=== PATIENT | female | born 1965 | race Caucasian/White ===

== ENCOUNTER 2025-03-13 09:29 | Outpatient (AMB) | payer MEDICARE, SELFPAY ==
[2025-03-13 09:42] VITALS: BMI 24.5
--- NOTE | 2025-03-13 09:42 | A.PHYSOV ---
Vital Signs 03/13/25 09:42 Height 5 ft 6 in Weight 152 lb BMI 24.5 Intake Visit Reasons: Left shoulder injection Intake Note: Patient is a 60year old female here for a left shoulder injection today. Ingredient Specialist Required: No Allergies No Known Allergies Allergy (Verified 03/13/25 09:43) [facility] Social History Alcohol intake: current Alcohol intake frequency: does not drink Patient Tobacco Use Status: Never used Tobacco Substance Use Type: Marijuana Physical Exam Vital Signs: BMI result Body Mass Index 24.5 Office Procedures AMB Shoulder Injection AMB Shoulder Injection Procedure Details: Left Subacromial injection Procedure: The patient was educated about risks, complications and benefits including but not limited to increased serum glucose, infection, nerve damage, bleeding, tendon/ligament damage and pain. We agree with a subacromial injection is the next best step in the treatment plan. Verbal consent was obtained. Using aseptic technique, the skin was cleansed with Betadine. Ethyl chloride was used to desensitize the skin. Using a posterior approach, 40 mg of Kenalog and 3 mL 2% lidocaine were injected using a 25-gauge inch and a half needle into the subacromial space. The patient tolerated the procedure well without immediate complication. Postinjection instructions were given. Shoulder Injection - : Left All charges added?: Procedure code (CPT) selection complete Office Meds Kenalog 40 mg/mL suspension for injection Performing Provider: KENNY Lyn Performing Location: [facility] Administered by: KENNY Lyn on 03/13/25 10:01 Dose Route Admin Location Dispensed Lot Number Expiration Date [facility] Spot Sprayer 40 mg intra-articular 40 mL [id number] Total Dispensed Waste 40 mL 0 % lidocaine (PF) 20 mg/mL (2 %) injection solution Performing Provider: KENNY Lyn Performing Location: [facility] Administered by: KENNY Lyn on 03/13/25 10:01 Dose Route Admin Location Dispensed Lot Number Expiration Date [facility] Spot Sprayer 60 mg intra-articular 50 mL [id number] Total Dispensed Waste 50 mL 0 % Assessment & Plan Assessment & Plan (1) Impingement of left shoulder: Code(s): M25.812 - Other specified joint disorders, left shoulder Category: Medical Plan Ms. Zuniga is a 60-year-old female seen in evaluation today for left shoulder impingement. Today she consented to left subacromial injection. She was given post-injection instructions, I recommend: Moist heat compresses for 15 minutes 5 times daily. Continue rotator cuff strengthening. She should avoid repetitive overhead activities. Patient is experiencing paresthesias to left upper extremity for the past 3 weeks. I recommend she give it some time. She will follow-up in 1 month, her symptoms are not markedly improved remain implement EMG testing to rule out carpal tunnel. Thank you for allowing me to participate in the care of your patient. Orders: Orders AMB Shoulder Injection Today M25.812 - Other specified joint disorders, left shoulder Coding Level of Care Code Procedure Only Diagnoses Impingement of left shoulder M25.812 CPT Codes AMB Shoulder Injection - Hip/Bursa Injection - 67465: Left ([id number])
--- OUTSIDE RECORDS SUMMARY | 2025-03-13 10:35 | XMS_ITS | Clinical Summary ---
Author Organization [facility] Address [address] [place] [address] Care Team Providers Care Clothes Drier Repairer Name Role Phone Ezequiel Spaulding MD Primary Care Provider [phone] Allergies No known active allergies Medications Medication Sig Dispensed Refills Start Date End Date Status Multiple Vitamins-Minerals (MULTIVITAMIN ADULTS) TABS Take by mouth daily. 0 Active ibuprofen (ADVIL,MOTRIN) 100 MG/5ML suspension Take 5 mg/kg by mouth every 6 (six) hours as needed for mild pain (1-3). 0 Active Acetaminophen (TYLENOL PO) Take by mouth as needed. 0 Active cyanocobalamin (VITAMIN B12) 1000 MCG/ML injection Inject 1 mL (1,000 mcg total) under the skin every 30 (thirty) days. 10 mL 1 02/09/2017 Active vitamin C (ASCORBIC ACID) 500 MG tablet Take 1 tablet (500 mg total) by mouth daily. With ferrous sulfate on empty stomach 100 tablet 3 02/22/2017 Active ferrous sulfate 325 (65 FE) MG tablet Take 1 tablet (325 mg total) by mouth every morning with breakfast. 100 tablet 3 02/22/2017 Active Insulin Syringes, Disposable, U-100 1 ML MISC Inject 1 Syringe under the skin every 28 days. Smallest needle available- gauge 25-31 acceptable. 1 cc or greater is suitable 10 each 1 03/04/2017 Active cyanocobalamin (VITAMIN B12) 1000 MCG/ML injection INJECT 1 ML (1,000 MCG TOTAL) UNDER THE SKIN EVERY MONTH 10 mL 1 04/28/2018 Active Active Problems Problem Noted Date Diagnosed Date Pernicious anemia 02/09/2017 Graves disease 02/09/2017 Atrophic gastritis without hemorrhage 02/09/2017 Social History Tobacco Use Types Packs/Day Years Used Date Smoking Tobacco: Former Smokeless Tobacco: Never Alcohol Use Standard Drinks/Week Comments Yes 0 (1 standard drink = 0.6 oz pur e alcohol) Sex and Gender Information Value Date Recorded Sex Assigned at Not on file Gender Identity Not on file Sexual Orientation Not on file Last Filed Vital Signs Vital Sign Reading Time Taken Comments Blood Pressure 110/56 08/10/2017 11:03 AM EDT Pulse 62 08/10/2017 11:03 AM EDT Temperature - - Respiratory Rate - - Oxygen Saturation - - Inhaled Oxygen Concentration - - Weight 73.2 kg (161 lb 6.4 oz) 08/10/2017 11:03 AM EDT Height 167.6 cm (5' 6 ) 02/09/2017 10:56 AM EDT Body Mass Index 26.05 02/09/2017 10:56 AM EDT Plan of Treatment Health Maintenance Due Date Last Done Comments Hepatitis B Vaccines (1 of 3 - 3-dose series) 1967 Hepatitis C Screening 1967 COVID-19 Vaccine (#1) 1967 Depression Screening 1979 Preventative Health Evaluation 1985 DTap / Tdap / Td (1 - Tdap) 1986 Cervical Cancer Screening (P ap Smear) 01/03/1988 Colon Cancer Screening (Colonoscopy) 01/03/2012 Breast Cancer Screening (Mammogram) 2017 Shingrix-Zoster Vaccine (1 of 2) 2017 Influenza Vaccine (#1) 2024 Pneumococcal Vaccine Aged Out No long er eligible based on patient's age to complete this topic RSV Ped < 20 months Aged Out No longe r eligible based on patient's age to complete this topic Care Teams Clothes Drier Repairer Relationship Specialty Start Date End Date Ezequiel Spaulding MD [address] [place] [address] PCP - General Family Medicine 02/08/17
--- OUTSIDE RECORDS SUMMARY | 2025-03-13 10:35 | XMS_ITS | Clinical Summary ---
Author Organization [facility] [address] [facility] Address [address] [place] [address] Phone Care Team Providers Care Film Projector Operator Name Role Phone Nicole Brown MD Primary Care Prov ider Allergies No known active allergies Medications alpha lipoic acid-biotin 300 mg- 333 mcg capsule Take 1 capsule by mouth 1 (one) time each day. 4 Active calcium carbonate (CALCIUM ORAL) Take by mouth. Calcium Carbonate-Vit D-Min (CALCIUM 1200 OR) Active MAGNESIUM GLUCONATE ORAL Take by mouth. Active diclofenac (VOLTAREN) 1 % topical gel Apply 4 g topically 2 (two) times a day. 4 Active ibuprofen 200 mg capsule 200 mg. 7 Active pen needle, diabetic (PEN NEEDLE MISC) Syringe/Needle , Disp, 30G X 1/2 1 ML Misc 1 Each by Does not apply route every 30 days. 3 Active amitriptyline (ELAVIL) 10 mg tablet Take 1 tablet (10 mg total) by mouth at bedtime. 4 Active gabapentin (NEURONTIN) 300 mg capsuleIndicati ons:Sensory neuropathy Take 1 capsule (300 mg total) by mouth 2 (two) times a day. 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 Overview (03/13/2024): By EMG bilateral foot Vitamin D deficiency 03/28/2023 Uric acid serum decreased 04/30/2022 Chest discomfort 12/04/2021 Overview (03/13/2024): X4 years Cervical lymphadenopathy 08/26/2020 Depression 05/23/2020 Anxiety 05/23/2020 Graves disease 02/09/2017 Overview (03/13/2024): Graves disease Atrophic gastritis without hemorrhage 02/09/2017 Pernicious anemia 02/09/2017 Lid retraction 06/23/2010 Overview (03/13/2024): Nl TFT and MRI of brain and orbit with Dr Martinez, opthalmologist 06/2010 Cobalamin deficiency 05/27/2009 Immunizations Immunization Administration Dates Next Due Influenza Quadravalent, MDCK , 0.5ml, with preservative (Flucelvax) 6mo and older 12/27/2019 Influenza Quadrivalent, 0.5m l, preservative free (Fluarix; FluLaval; Fluzone) ages 6mo and older (Afluria) 3yo and older 02/10/2023,03/23/2022,01/19/2019,2017,03/08/2016 Influenza trivalent, 0.5mL, preservative free (Fluarix; FluLaval; Fluzone) ages 6mo and older (Afluria) 3 years and older 01/19/2024,02/10/2023,03/23/2022,2018,02/07/2018,03/08/2016 Influenza trivalent, with preservative (Fluzone; Afluria) 6mo and older 01/28/2010 Pfizer SARS-CoV-2 COVID-19, mRNA, LNP-S, preservative free 08/14/2020 Pneumococcal conjugate 13 va lent (Prevnar 13, PCV13) 2mo and older 12/27/2019 Td Tetanus diptheria (Tdvax) 7yo and older 02/05/2020 Tdap Tetanus diptheria acell ular pertussis (Boostrix; Adacel) 7yo and older 05/27/2009 Surgical History Surgery Date Site/Laterality Comments WISDOM TOOTH EXTRACTION 2018 PROCEDURE: HISTORICAL WISDOM TEETH EXTRACTION WRIST SURGERY 2010 Right PROCEDURE: HISTORICAL WRIST SURGERY; COMMENT: Fx, x 2 to repair hardware COLONOSCOPY 01/17/2017 PROCEDURE: HISTORICAL COLONOSCOPY OTHER SURGICAL HISTORY 01/17/2017 PROCEDURE: HISTORY OTHER; COMMENT: Endoscopy Medical History Medical History Date Comments Anxiety 05/23/2020 DX:Anxiety Atrophic gastritis without hemorrhage 02/05/2020 DX:Atrophic gastritis without hemorrhage Chronic dental infection 03/27/2020 DX:Fur Remodeler ivanna dental infection Cobalamin deficiency 05/27/2009 DX:Cobalami n deficiency Depression 05/23/2020 DX:Depression Hyperthyroidism 02/05/2020 DX:Hyperthyroidi sm; COMMENT: Graves disease Lid retraction or lag 06/23/2010 DX:Lid ret raction or lag; COMMENT: Nl TFT and MRI of brain and orbit with Dr Martinez, opthalmologist 06/2010 Pernicious anemia 02/05/2020 DX:Pernicious anemia Persistent cough for 3 weeks or longer 05/23/2020 DX:Persistent cough for 3 weeks or longer; COMMENT: 07/17/19 Z pack for suspected Pneumonia. Negative CXR. 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 Negative CT History of wrist fracture 06/19/2010 DX:His tory of wrist fracture; COMMENT: Right, Fall 05/2010, Neos Family History Medical History Relation Name Comments Glaucoma Father Heart attack Father Hypertension Father Arthritis Mother Diabetes Mother diet controlled Thyroid disease Mother Other cancer Other niece with thyr oid cancer Other: hashimotos Sister Relation Name Status Comments Brother 1 Alive Brother 2 Alive Father (Age 74) kidney dis ease due to HTN Maternal Grandfather Maternal Grandmother bleedin g disorder Mother Alive Other Paternal Grandfather pancrea tic cancer Paternal Grandmother Sister Alive Social History Tobacco Use Types Packs/Day Years Used Date Smoking Tobacco: Former Cigarettes 1 Q uit: 04/18/2003 Smokeless Tobacco: Never Tobacco Cessation:Counseling Given: Not Answered Alcohol Use Standard Drinks/Week Comments No 0 (1 standard drink = 0.6 oz pur e alcohol) Comments No Sex and Gender Information Value Date Recorded Sex Assigned at Not on file Legal Sex Female 6:00 PM EST Gender Identity Not on file Sexual Orientation Not on file Obstetrics History Last Filed Vital Signs Vital Sign Reading Time Taken Comments Blood Pressure 93/55 10/22/2024 8:32 AM EDT Pulse 55 10/22/2024 8:32 AM EDT Temperature 36.9 C (98.5 F) 10/22/2024 8:32 AM EDT Respiratory Rate - - Oxygen Saturation - - Inhaled Oxygen Concentration - - Weight 69.4 kg (153 lb) 10/22/2024 8:32 AM EDT Height 167.6 cm (5' 6 ) 10/22/2024 8:32 AM EDT Body Mass Index 24.69 10/22/2024 8:32 AM EDT Plan of Treatment Upcoming Encounters Date Type Department Care Team (Late st Contact Info) Description 04/25/2025 8:30 AM EST Office Visit Adult Medicine - [place] [address] [place] [address] Nicole Brown MD [address] [place] [address] Health Maintenance Due Date Last Done Comments Cervical Cancer Screening: Pap Smear 01/03/1988 Pneumococcal Vaccine: 50+ Years (2 of 2 - PCV20 or PCV21) 12/26/2020 12/27/2019 Medicare Annual Wellness Visit 03/27/2022 Breast Cancer Screening 10/14/2022 10/15/19 21, 10/07/2020, 09/23/2020 Influenza Vaccine (#1) 2024 4, 02/10/2023, 02/10/2023, Additional history exists Colorectal Cancer Screening: Colonoscopy 01/17/2027 01/17/2017 Cholesterol Screening (Lipid Panel) 05/08/2029 05/08/2024, 01/19/2024, 01/19/2024 DTaP,Tdap,and Td Vaccines (3 - Td or Tdap) 02/04/2030 02/05/2020, 05/27/2009 RSV Immunization Adult Patients (1 - 1-dose 75+ series) 2042 COVID-19 Vaccine Discontinued 05/22/2022, , 07/24/2020 Hepatitis C Screening Completed 01/19/2024 Depression Screening Completed 05/08/2024 HIB Vaccines Aged Out No longer eligi ble based on patient's age to complete this topic HIV Screening Discontinued HPV Vaccines Aged Out No longer eligi ble based on patient's age to complete this topic Hepatitis A Vaccines Aged Out No long er eligible based on patient's age to complete this topic Hepatitis B Vaccines Discontinued IPV Vaccines Aged Out No longer eligi ble based on patient's age to complete this topic MMR Vaccines Aged Out No longer eligi ble based on patient's age to complete this topic Meningococcal ACWY Vaccine Aged Out N o longer eligible based on patient's age to complete this topic Meningococcal B Vaccine Aged Out No l onger eligible based on patient's age to complete this topic RSV Immunization Patients Under 20 months Aged Out No longer eligible based on patient's age to complete this topic Social Influencers of Health Screening Discontinued Varicella Vaccines Aged Out No longer eligible based on patient's age to complete this topic Zoster Vaccines Discontinued Procedures Procedure Name Priority Date/Time Associated Diagnosis Comments LIPID PANEL WITH REFLEX TO DIRECT LDL Routine 05/08/2024 10:46 AM EST Routine general medical examination at a health care facility HEPATITIS C SCREENING Routine 01/19/2024 DX MAMMO INCL CAD UNI Routine 10/14/2020 10:12 AM EDT Other abnormal and inconclusive findings on diagnostic imaging of breast COLONOSCOPY Routine 01/17/2017 from Last 3 Months or Most Recently Relevant to Health Maintenance Results * (ABNORMAL) Lipid panel with reflex to direct LDL (05/08/2024 10:46 AM EST) Cholesterol 208(H) 0 - 200 mg/dL LAB CHEMISTRY METHOD 05/08/2024 1:20 PM EST [facility] Triglycerides 34 0 - 150 mg/dL LAB CHEMISTRY METHOD 05/08/2024 1:20 PM EST [facility] HDL 101 >=40 mg/dL LAB CHEMISTRY METHOD 05/08/2024 1:20 PM EST [facility] LDL Calculated 100 0 - 100 mg/dL LAB CHEMISTRY METHOD 05/08/2024 1:20 PM EST [facility] VLDL Cholesterol Yfn 6.8 mg/dL LAB CHEMISTRY METHOD 05/08/2024 1:20 PM EST [facility] Non HDL Chol. (LDL+VLDL) 107 <145 mg/dL LAB CHEMISTRY METHOD 05/08/2024 1:20 PM EST [facility] Chol/HDL Ratio 2.1 0.0 - 4.4 LAB CHEMISTRY METHOD 05/08/2024 1:20 PM [facility] Blood Venous blood specimen / Unknown Venipuncture / Unknown 05/08/2024 10:46 AM EST 05/08/2024 10:46 AM EST Nicole Brown MD LAB BLOOD ORDERABL ES Final Result [facility] [address] [place] [address], [place] [phone] * Hepatitis C Screening (01/19/2024) [facility] Hepatitis C Screening Abstracted [facility] Provider [facility] MAINTENANCE Final Result * DX MAMMO INCL CAD UNI (10/14/2020 10:12 AM EDT) Anatomical Region Laterality Modality Mammography 10/07/2020 11:3 9 AM EDT Narrative 10/14/2020 10:18 AM EDT 2 view digital mammogram left breast for clip placement: See combined report with ultrasound-guided core biopsy and clip placement of the same day. Procedure Note Jessie Ross MD - 04/06/2022 2 view digital mammogram left breast for clip placement: See combinedreport with ultrasound-guided core biopsy and clip placement of the same day. Nicole Brown MD IMG BI PROCEDURES Final Result * Colonoscopy (01/17/2017) Colonoscopy No Interpretation , Abstracted Anatomical Region Laterality Modality Other us Historical Provider HEALTH MAINTENANCE Final Result from Last 3 Months or Most Recently Relevant to Health Maintenance Insurance [employer] Care Teams Film Projector Operator Relationship Specialty Start Date End Date Nicole Brown MD PCP - General Internal Medicine 07/14/20
--- OUTSIDE RECORDS SUMMARY | 2025-03-13 10:35 | XMS_ITS ---
[facility] Care Team Organization Name Specialty Phone Email Start Date End Da te [facility] 12/05/2024 [facility] AMY CRAWLEY Primary Care 02/23/2022 12/05/2023
== END 2025-03-13 10:02 | disposition home or self-care (01) ==
LOC: HO.HPHYS 09:30
PROVIDERS: PCP Internal Medicine; Visit Provider Physician Assistant
DX: M25.812 Other specified joint disorders, left shoulder (principal)
CPT/HCPCS: 20610

== ENCOUNTER → 2025-03-13 09:29 | Outpatient (BNVA) | payer MEDICARE, SELFPAY | PROVIDERS: PCP Internal Medicine; Visit Provider Physician Assistant | DX: M25.812 Other specified joint disorders, left shoulder (principal); R20.2 Paresthesia of skin | CPT/HCPCS: 20610; J2003; J3301 ==